=== PATIENT | female | born 1945 | race Two or more races ===

== ENCOUNTER 2023-11-24 14:36 | Emergency (ER) | payer OTHER, MEDICAID ==
[~2023-11-24] VITALS: Ht 157.5 cm; Wt 69.8 kg
[2023-11-24 15:17] VITALS: BP 124/90; PULSE 66; RESP 20; TEMP 99.6; O2SAT 96
== END 2023-11-24 15:32 | disposition home or self-care (01) ==
LOC: ER 14:36
DX: S60.312D Abrasion of left thumb, subsequent encounter (principal); I10 Essential (primary) hypertension; E11.9 Type 2 diabetes mellitus without complications; Z48.00 Encounter for change or removal of nonsurgical wound dressing; W26.0XXD Contact with knife, subsequent encounter